=== PATIENT | male | born 2000 | race Caucasian/White ===

== ENCOUNTER 2021-06-27 19:37 | Emergency (ER) | payer OTHER, SELFPAY ==
[2021-06-27 19:47] VITALS: BP 145/91; PULSE 86; RESP 18; TEMP 37.2; O2SAT 99
--- NOTE | 2021-06-27 21:15 | W.ED.GENAD ---
Discharge Plan Disposition Patient Disposition: HOME Condition: Stable Discharge Details Clinical Impression: Finger injury Primary Care Provider: Elif,Local ED Provider: Robin Harris Discharge Instructions Additional Instructions: A digital block was performed, nail was then cut back down and then cut to appropriate length. Dressing was then applied. Rest, elevate, cool compresses every 2 hours for 20 minutes. [id number] Tylenol and/or Motrin as directed for discomfort. Change dressing daily. Please watch for new or worsening symptoms and return to the ER for any concerns. I do recommend contacting your primary care provider for reevaluation once you return home Discharge Data Discharge Date/Time-TO BE ENTERED AT DEPARTURE: 06/27/21 21:23 Medical Decision Making 20-year-old male, [id number], presents with a right middle finger injury. Tetanus status is up-to-date. Plan is to perform a digital block using a total of 5 cc [id number] mixture of 1% lidocaine and 0.5% bupivacaine. Patient tolerated this without difficulty. I was then able to flip the nail back to its original positioning. Mother used nail clippers and then cut the nail down to size. The area was then cleaned and dressed appropriately. No additional questions or concerns. Patient tolerated well. Standard discharge and return precautions provided This documentation was generated using [employer] dictation system, please disregard any oddities of phrase or misspellings. HPI General Mode of arrival: ambulatory. Date/Time Provider Initiated Documentation: 06/27/21 19:46. Limitations to Documentation: no limitations. Information obtained by: patient and family. HPI Narrative: This is a 20-year-old male, presenting with family complaining of a right middle finger nail injury. He is right-hand dominant. Tetanus status is up-to-date. Patient states that he accidentally caught his finger on a light switch, bending the nail backward. He denies any other injury. Reports the pain is moderate but worse with movement or touching. Denies numbness, tingling, weakness. No additional concerns or complaints Related Data Allergies Allergy/AdvReac Type Severity Reaction Status Date / Time No Known Allergies Allergy Unverified 06/27/21 19:50 General Stated Complaint: Laceration LAURA: 4 Review of Systems Constitutional Constitutional: Denies fever(s) and Denies weakness Musculoskeletal Musculoskeletal: Denies arthralgias, Denies numbness, Denies stiffness and Denies tingling Integumentary/Breasts Skin/Breast: Denies erythema and Denies rash Neurologic Neurologic: Denies numbness, Denies tingling and Denies weakness [facility] Social History Smoking/Tobacco Use Status: Never Smoking risk assessment performed?: Yes Alcohol Intake: never Substance use type: does not use Do you feel safe at home: Yes Do you feel safe in your relationship?: Yes Exam Const General: cooperative, healthy appearing, comfortable and no acute distress Orientation: alert and awake [facility] Head: normal to inspection, normocephalic and atraumatic Eyes General: appearance normal, both eyes and all related structures Conjunctivae: conjunctivae normal Neck Neck: normal visual inspection, trachea midline and supple Resp Effort & Inspection: normal respiratory effort and able to speak in complete sentences Cardio Rate: regular rate Rhythm: regular rhythm Skin General skin exam: no rashes or lesions noted Neuro General: patient alert, patient awake, moves all extremities and no focal motor deficits Cognition: normal cognition Speech: speech normal Gait: normal gait Sensory Exam: no sensory deficits noted Extrem General: full ROM and capillary refill normal Other: Right middle finger neuro, vascular, tendon intact. Full range of motion. The very distal nail is flipped up to approximately 90 degrees. The very distal aspect of the nail does appear to be pulled from the nail bed but the rest of the nail is intact, no active bleeding or obvious laceration to repair. Normal capillary refill and radial pulse. Psych Appearance: grossly normal Mental Status: mental status grossly normal Course Vital Signs Vital signs: Vital Signs Temperature 37.2 C 06/27/21 19:47 Pulse 86 06/27/21 19:47 Respiratory Rate 18 06/27/21 19:47 Blood Pressure 145/91 H 06/27/21 19:47 Pulse Oximetry 99 06/27/21 19:47 Temperature 37.2 C 06/27/21 19:47 Temperature Source Temporal Artery Scan 06/27/21 19:47 Pulse 86 06/27/21 19:47 Respiratory Rate 18 06/27/21 19:47 Respiratory Effort Non-Labored 06/27/21 19:53 Blood Pressure 145/91 H 06/27/21 19:47 Blood Pressure Position Sitting 06/27/21 19:47 Pulse Oximetry 99 06/27/21 19:47 Oxygen Delivery Method Room Air 06/27/21 19:47 Oxygen Flow Rate 0 06/27/21 19:47 Pain Level 8 06/27/21 19:47
[2021-06-27 21:22] VITALS: RESP 18
== END 2021-06-27 21:23 | disposition home or self-care (01) ==
PROVIDERS: Emergency Provider Physician Assistant
DX: S61.302A Unspecified open wound of right middle finger with damage to nail, initial encounter (principal); X58.XXXA Exposure to other specified factors, initial encounter
CPT/HCPCS: 64450

== ENCOUNTER 2021-10-11 16:59 | Emergency (ER) | payer BC, SELFPAY ==
[2021-10-11 17:07] VITALS: BP 154/94; PULSE 81; RESP 18; TEMP 37; O2SAT 97
--- NOTE | 2021-10-11 17:30 | DI.RAD_ITS ---
Exam(s) XR ABD FLAT UPRIGHT PA CHEST EXAM: XR ABD FLAT UPRIGHT PA CHEST CLINICAL HISTORY: Constipation. TECHNIQUE: 2D digital imaging was performed. COMPARISON: No exams were available for comparison FINDINGS: Chest x-ray: Heart size normal. Lungs are clear. No pleural effusions. No mediastinal widening. Abdomen-two views: Bowel gas pattern is nonspecific. There is no evidence of bowel obstruction nor f ree intraperitoneal air. No abnormal calcifications seen over the kidneys nor along the course of th e ureters. No right lower quadrant calcifications. Regional bones appear unremarkable. IMPRESSION: No acute pulmonary findings. Nonspecific bowel gas pattern. No evidence of bowel obstruction. DATA REPOSITORY: RADIATION DOSE DELIVERED:
--- NOTE | 2021-10-11 17:35 | W.ED.GENAD ---
Discharge Plan Disposition Patient Disposition: HOME Condition: Stable Discharge Details Clinical Impression: Constipation Primary Care Provider: Elif,Local ED Provider: Anahi Rushing Home Meds and New Rx's Prescriptions: No Action lansoprazole 15 mg Capsule,Delayed Release(Dr/Ec) 30 mg PO DAILY RF: 0 budesonide 1 mg/2 mL Suspension For Nebulization 2 mg inhalation DAILY RF: 0 Discharge Instructions Instructions: Constipation (ED), Fleet Enema (ED) Additional Instructions: The X-ray showed no evidence of bowel obstruction, but it did show moderate constipation. You may obtain glycerin suppositories over the counter at [employer] or similar and use once to twice daily as needed for bowel movement. Use the fleet enema as instructed when you get home. Increase oral fiber. Increase oral fluids. You may also consider Colace or other similar stool softeners which are also over the counter However, use these sparingly as they can cause diarrhea. Follow up with primary care provider in 3-5 days. Return to ED sooner if any worsening or concerns. Increase oral fluids. Discharge Data Discharge Date/Time-TO BE ENTERED AT DEPARTURE: 10/11/21 18:46 Medical Decision Making 20-year-old male presents to the ER with chief complaint of constipation x2 weeks. He denies any vomiting or abdominal pain. He is complaining of some rectal discomfort. He reports having periodic small hard stools. He has tried magnesium citrate on 2 different occasions with little to no relief. He is autistic. Presents with his mother who provides some of the history. She is concerned that he is constipated, however he is increasing his water intake recently. Denies any vomiting, fever or any other associated symptoms. At this time x-ray abdomen ordered, glycerin suppository. Will consider an enema if no results with glycerin suppository. TECHNIQUE: Imaging protocol: XR complete acute abdomen series, including 2 or more views of the abdomen and a single view chest. COMPARISON: No relevant prior studies available. FINDINGS: Lungs: Normal. No consolidation. Pleural spaces: Normal. No pleural effusions. No pneumothorax. Heart/Mediastinum: Normal. No cardiomegaly. Diaphragm: There is nonspecific elevation of the right hemidiaphragm. Gastrointestinal tract: The bowel gas pattern is nonobstructive and nonspecific. A large amount of stool is noted throughout the colon. Intraperitoneal space: Normal. No free air. Bones/joints: Normal. No acute fracture. Soft tissues: Normal. IMPRESSION: 1. The bowel gas pattern is nonobstructive and nonspecific. 2. A large amount of stool is noted throughout the colon. Thank you for allowing us to participate in the care of your patient. Dictated and Authenticated by: Phoenix Baird DO Will send a Fleet enema home with patient and instruct on use. Will give instructions to use OTC glycerin suppositories and use fleet enemas as well as colace or other similar stool softener as needed. Increase oral fiber and fluids. This text was generated using [employer]ation system, please disregard any oddities of phrase or misspellings. HPI General Mode of arrival: ambulatory. Date/Time Provider Initiated Documentation: 10/11/21 17:02. Limitations to Documentation: no limitations. Information obtained by: patient, family (Mom) and RN notes reviewed. HPI Narrative: 20-year-old male presents to the ER with chief complaint of constipation x2 weeks. He denies any vomiting or abdominal pain. He is complaining of some rectal discomfort. He reports having periodic small hard stools. He has tried magnesium citrate on 2 different occasions with little to no relief. He is autistic. Presents with his mother who provides some of the history. She is concerned that he is constipated, however he is increasing his water intake recently. Denies any vomiting, fever or any other associated symptoms. Related Data Home Medications Medication Instructions Recorded Confirmed budesonide 2 mg INHALATION DAILY 10/11/21 10/11/21 lansoprazole 30 mg PO DAILY 10/11/21 10/11/21 Allergies Allergy/AdvReac Type Severity Reaction Status Date / Time No Known Allergies Allergy Unverified 06/27/21 19:50 General Stated Complaint: GenMedical LAURA: 3 Review of Systems All systems reviewed & are unremarkable except as noted in HPI and below PFSH All Active Problems (Updated 10/11/21 @ 18:28 by Anahi Rushing) Finger injury (Acute) Constipation (Acute) Social History Smoking/Tobacco Use Status: Never Smoking risk assessment performed?: Yes Alcohol Intake: never Drug use: Never Substance use type: does not use Do you feel safe at home: Yes Do you feel safe in your relationship?: Yes Exam Narrative Exam Narrative: Constitutional: Alert and oriented x3. Appears stated age. Normal body habitus. Head: Normocephalic, no trauma. Eyes: Pupils PERRL, Red reflex noted, EOM's intact. Eyelids symmetrical without lesions, discharge, or swelling. ENT: Bilateral TM's WNL, External ear normal to inspection, no mastoid TTP, swelling, or erythema, Nasal turbinates WNL, no nasal discharge. Normal dentition, Posterior pharynx WNL, no exudate. Chest: RRR, Normal S1, S2, distal pulses intact. Resp: Lungs clear to auscultation bilaterally, no wheezes, rales, or rhonchi. Abdomen: Soft, non-distended, Normoactive bowel sounds all 4 quads.. Nontender to palpation all 4 quadrants. Musculoskeletal: Normal gait, 5/5 strength to all four extremities. Skin: No suspicious rashes or lesions. Capillary refill less than 2 sec. Neurologic: Cranial nerves II-XII intact. Alert and oriented x 3. Motor: No deficits noted. Sensory: Intact bilaterally all 4 extremities. Reflexes: DTR's intact bilaterally.. Hematologic/Lymphatic: No ecchymosis, no lymphadenopathy. Course Vital Signs Vital signs: Vital Signs Temperature 37 C 10/11/21 17:07 Pulse 81 10/11/21 17:07 Respiratory Rate 18 10/11/21 17:07 Blood Pressure 154/94 H 10/11/21 17:07 Pulse Oximetry 97 10/11/21 17:07 Temperature 37 C 10/11/21 17:07 Temperature Source Temporal Artery Scan 10/11/21 17:07 Pulse 81 10/11/21 17:07 Respiratory Rate 18 10/11/21 17:07 Respiratory Effort Non-Labored 10/11/21 17:14 Blood Pressure 154/94 H 10/11/21 17:07 Blood Pressure Position Sitting 10/11/21 17:07 Pulse Oximetry 97 10/11/21 17:07 Oxygen Delivery Method Room Air 10/11/21 17:07 Oxygen Flow Rate 0 10/11/21 17:07
[2021-10-11] MEDS: Glycerin Adult Suppository JAR 1 SUPP PR (17:56)
--- NOTE | 2021-10-11 18:21 | DI.VRAD_ITS ---
PROCEDURE INFORMATION: Exam: XR Complete Acute Abdomen Series Including Chest Exam date and time: 10/11/2021 5:35 PM Age: 20 years old Clinical indication: Other: Constipation TECHNIQUE: Imaging protocol: XR complete acute abdomen series, including 2 or more views of the abdomen and a single view chest. COMPARISON: No relevant prior studies available. FINDINGS: Lungs: Normal. No consolidation. Pleural spaces: Normal. No pleural effusions. No pneumothorax. Heart/Mediastinum: Normal. No cardiomegaly. Diaphragm: There is nonspecific elevation of the right hemidiaphragm. Gastrointestinal tract: The bowel gas pattern is nonobstructive and nonspecific. A large amount of stool is noted throughout the colon. Intraperitoneal space: Normal. No free air. Bones/joints: Normal. No acute fracture. Soft tissues: Normal. IMPRESSION: 1. The bowel gas pattern is nonobstructive and nonspecific. 2. A large amount of stool is noted throughout the colon. Dictated and Authenticated by: Phoenix Baird MD. Ordering:ENRIQUE Christian MD
--- NOTE | 2021-10-11 18:45 | NUR.NOTE ---
Nursing Note: Pt info given to care management to establish care within 1-2 weeks. Karla, ED
== END 2021-10-11 18:46 | disposition home or self-care (01) ==
PROVIDERS: Emergency Provider Registered Nurse Emergency
DX: K59.00 Constipation, unspecified (principal)
CPT/HCPCS: 99283; 74022; 99282